=== PATIENT | female | born 1995 | race Asian ===

== ENCOUNTER 2020-05-20 14:27 | Emergency (ER) | payer OTHER, BC ==
[~2020-05-20] VITALS: Ht 160 cm; Wt 87.5 kg
[2020-05-20 14:30] VITALS: BP 123/80
[2020-05-20 15:39] VITALS: BP 123/80
== END 2020-05-20 15:40 | disposition home or self-care (01) ==
LOC: MED 14:27
DX: S20.212A Contusion of left front wall of thorax, initial encounter (principal); V49.9XXA Car occupant (driver) (passenger) injured in unspecified traffic accident, initial encounter; Y93.89 Activity, other specified; Y92.89 Other specified places as the place of occurrence of the external cause; Y99.8 Other external cause status
CPT/HCPCS: 71045; 81002; 81025; 99283